=== PATIENT | male | born 1930 | race Caucasian/White ===

== ENCOUNTER 2016-08-13 08:08 | Observation (INO) | payer MEDICARE, BC ==
[2016-08-13] MEDS ORDERED: VERAPAMIL 2.5 MG/ML 4 ML VIAL ONE (09:13)
[2016-08-13] MEDS ORDERED: fentaNYL* 50 MCG/ML 2 ML VIAL (100 MCG VIAL) ONE (09:13)
[2016-08-13] MEDS ORDERED: Heparin(*) 1000 UNIT/ML 10 ML VIAL CATH LAB IV ONE (09:13)
[2016-08-13] MEDS ORDERED: Midazolam* 1 MG/ML 5 ML VIAL (5 MG) ONE (09:13)
[2016-08-13] MEDS ORDERED: Iohexol 350 (CONTRAST) 200 ML MDV IV ONE (09:14)
[2016-08-13] MEDS ORDERED: nitroGLYCERIN DRIP* 250 ML ONE (09:14)
[2016-08-13] MEDS ORDERED: Lidocaine 1% INJ* 10 MG/ML 30 ML SDV ONE (09:14)
[2016-08-13] MEDS ORDERED: Heparin 2 UNITS/ML IVPREMIX* 2,000 ML IV ONE (09:14)
[2016-08-13] MEDS ORDERED: Iodixanol* (CONTRAST) 320 MG/ML 100 ML SDV ONE ×3 (09:16→09:48)
[2016-08-13] MEDS ORDERED: Ticagrelor* 90 MG TAB PO ONE (09:51)
[2016-08-13] MEDS ORDERED: Acetaminophen TAB* 325 MG PO PRN (10:15)
[2016-08-13] MEDS ORDERED: NS 0.9% 1000 ML* 1,000 ML IV SCH (10:15)
[2016-08-13] MEDS ORDERED: LORazepam TAB(*) 0.5 MG PO PRN (10:17)
[2016-08-13] MEDS ORDERED: Saline NASAL SPRAY 0.65%* BTL BOTH NARES SCH (10:30)
[2016-08-13] MEDS ORDERED: Carbamide Peroxide 6.5% OTIC* 15 ML BTL BOTH EARS SCH (11:00)
[2016-08-13] MEDS ORDERED: Nitroglycerin TAB 0.4 MG* 0.4 MG TAB SL SCH (11:00)
[2016-08-13] MEDS ORDERED: Atorvastatin* 80 MG TAB PO SCH (17:00)
[2016-08-13] MEDS: Atenolol TAB* 25 MG PO SCH (21:49)
[2016-08-13] MEDS: Ticagrelor* 90 MG TAB PO SCH (21:49)
[2016-08-14 06:19] LABS: Calcium 8.9 mg/dL (8.6-10.3); EGFR African American 64.3 (>60); Potassium 3.7 mmol/L (3.5-5.0)
[2016-08-14] MEDS: Atenolol TAB* 25 MG PO SCH (08:28)
[2016-08-14] MEDS: Ticagrelor* 90 MG TAB PO SCH (08:28)
[2016-08-14] MEDS ORDERED: Finasteride TAB* 5 MG PO SCH (09:00)
[2016-08-14] MEDS ORDERED: NIFEdipine ER TAB* 60 MG PO SCH (09:00)
[2016-08-14] MEDS ORDERED: Tamsulosin CAP* 0.4 MG PO SCH (09:00)
[2016-08-14] MEDS ORDERED: Aspirin Low Dose CHEW TAB* 81 MG PO SCH (09:00)
[2016-08-14 13:05] VITALS: BP 121/74
--- NOTE | 2016-08-15 11:45 | DS ---
DISCHARGE SUMMARY: DATE OF ADMISSION: 08/13/16 DATE OF DISCHARGE: 08/14/16 PRIMARY CARE PHYSICIAN: Dr. Pinto. CHIEF DEPUTY COURT CLERK: Dr. Esparza. DISCHARGE DIAGNOSES: 1. Angina pectoris. 2. Previous coronary artery stenting. 3. Chronic kidney disease, stage 3. 4. Dyslipidemia. PROCEDURES: Cardiac cath, stent placement, circumflex 3.0 x 12 Xience drug- eluting stent. HISTORY: See Dr. Esparza's office record. In brief, he presented for outpatient catheterization for evaluation of new onset of angina, which has been limiting in spite of medical therapy. He had previous remote right coronary artery stenting. Comorbidities included CKD, stage 3 and dyslipidemia. He was volume loaded precath. DIAGNOSTIC STUDIES/LAB DATA: CBC on August 10, hemoglobin 13.5, normal platelet count. Chemistries on August 10, creatinine 1.46, at baseline. Normal electrolytes. Today, post procedure creatinine is 1.35 with stable electrolytes. Last LDL in October of 2015 was 64 on the Zocor. EKG post procedure shows sinus rhythm at 61 with borderline left axis deviation. HOSPITAL COURSE: He underwent outpatient catheterization via the right radial approach without complications, was found to have a high-grade circumflex stenosis, the RCA stent was widely patent. LV gram was not performed because of renal insufficiency. He has new onset of limiting angina. The circumflex stenosis was stented as above. Post procedure, there were no complications. His right radial artery is patent by exam, he has not had heart failure, angina , bleeding complications. He will continue Brilinta 90 b.i.d. for a day or two until he gets Plavix from the pharmacy, then he will continue aspirin and Plavix. He was switched from Zocor to high-dose Lipitor in part for its pleiotropic benefit even though his lipids were at target earlier last year. In addition, he obviously progressed in spite of Zocor 20. He has been discharged to outpatient followup, has a scheduled followup with Dr. Esparza. CC: Dr. Pinto; Dr. Esparza* [id number]/[facility] #: [id number] MTDD
--- NOTE | 2016-08-16 10:54 | CATH ---
STENT REPORT: DATE OF PROCEDURE: 08/13/16 PRIMARY: Dr. Pinto. TRANSPORT ENGINEER: Dr. Ken Esparza. PROCEDURES: Right radial artery access, bilateral selective coronary cineangiography, left heart catheterization. No left ventriculogram. STENT PLACEMENT: Circumflex, 3.0 x 12 Xience Alpine drug-eluting stent deployed at 14 atmospheres for 30 seconds after predilation with a 2.5 mm balloon. INDICATIONS: An 85-year-old male with remote RCA stenting 15 years ago in the setting of an infarct, now with 2 weeks of limiting angina, on beta-oz and calcium-oz. COMORBIDITIES: Include CKD stage 3 with a creatinine of 1.4. Hence, LV gram was not performed. PROCEDURE ACCESS: Right radial artery sheath 6F Slender. MEDICATION: 1. Subcu lidocaine. 2. IV Versed. 3. IV fentanyl. 4. Heparin 3000 units. 5. Verapamil 3 mg. 6. Nitroglycerin 300 mcg IA. 7. Heparin 3000 units IV. 8. Brilinta 180 mg p.o. DIAGNOSTIC CATHETERS: TIG 5F 4, 6-FR 4, 6-FL 3.5. GUIDE: VL 3.5 6-Slovak. WIRE: 0.014 BMW. HEMODYNAMICS: Initial BP 135/66, LV 93/6-13, no aortic valve gradient on pullback. ANGIOGRAPHY: Imaging of the right subclavian shows it to be very tortuous. Left main: The left main is normal in size, has minimal distal taper, it is calcified, has no significant stenosis. LAD: The LAD is moderate, extends past the apex, it is heavily calcified, the LAD supplies a moderate first diagonal branch, after which the LAD has a 30% to 40% stenosis, mid LAD has a 30% stenosis. Circumflex: The circumflex is moderate, not dominant, with a proximal 80% to 90 % stenosis, after which there is a [id number] first marginal, a larger second marginal, the circumflex ends with a moderate posterolateral. RCA: The RCA is moderate, dominant, previously placed proximal stent is patent , at the crux there is a 40% to 50% stenosis before the origin of the RPDA. The PDA is [id number]. After circumflex stent placement, there is no residual stenosis at the lesion site, there is a 40% stenosis beyond the stent, unchanged from pre-stenting. Flow is CADEN-3. CONCLUSION: 1. 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 2. Normal left-sided hemodynamics. 3. LV gram not performed due to renal insufficiency. 4. Successful right radial artery access. CC: Dr. Pinto; Dr. Ken Esparza* [id number]/[facility] #: [id number] [facility]
== END 2016-08-14 14:30 | disposition home or self-care (01) ==
LOC: CHICATH 08:08 → INTOOBSV 10:33 → ICU 10:33
PROVIDERS: ADMIT Internal Medicine Cardiovascular Disease; ATTEND Internal Medicine Cardiovascular Disease
DX: I25.119 Atherosclerotic heart disease of native coronary artery with unspecified angina pectoris (principal); I10 Essential (primary) hypertension; I25.2 Old myocardial infarction; R94.31 Abnormal electrocardiogram [ECG] [EKG]
CPT/HCPCS: 36415; 80048; 93005; 93458; 94760; A9270-GY; C1725; C1769; C1876; C1887; C9600-LC; G0378; J1644; J2250; J3010

== ENCOUNTER 2018-03-17 09:39 | Day surgery (SDC) | payer MEDICARE, BC ==
[~2018-03-17 09:39] MED LIST: Acetaminophen TAB* 325 MG PO PRN; Buffered Lidocaine 0.9% SYRIN* 5 ML/SYR SYRINGE INTRADERM ONE
[2018-03-17] MEDS ORDERED: Lidocaine 2% PF * 5 ML VIAL ONE (10:55)
[2018-03-17] MEDS ORDERED: Propofol* 10 MG/ML 20 ML BTL IV PUSH ONE (10:55)
[2018-03-17] MEDS ORDERED: fentaNYL* 50 MCG/ML 2 ML VIAL (100 MCG VIAL) ONE (10:55)
[2018-03-17 11:45] VITALS: BP 120/60
[2018-03-17] MEDS ORDERED: Tropicamide 1% OPTH.SOL* BTL ONE (13:21)
[2018-03-17] MEDS ORDERED: Ketorolac 0.5% OPHTH (NF) 0.5 % 5 ML BTL ONE (13:21)
[2018-03-17] MEDS ORDERED: Phenylephrine 2.5% OPTH.SOL* 2 ML BTL ONE (13:21)
[2018-03-17] MEDS ORDERED: Phenylephr/Ketorolac 1%/0.3% OPH DROP BTL ONE (13:21)
[2018-03-17] MEDS ORDERED: Cyclopentolate 1% OPTH.SOL* 2 ML BTL ONE (13:21)
[2018-03-17] MEDS ORDERED: Neomycin/Polymy/Dex OPHTH.OIN* 3.5 GM ONE (13:21)
[2018-03-17] MEDS ORDERED: Lidocaine 1%* 5 ML VIAL ONE (13:21)
[2018-03-17] MEDS ORDERED: Tetracaine 0.5% OPTH.SOL 4 ML* 1 DROP BTL ONE (13:21)
--- NOTE | 2018-03-17 22:02 | OP ---
DATE OF OPERATION: 03/17/18 [facility] DATE OF : [birth year] SURGEON: Dr. Wilfredo Ball. SEO INTERN: None. ANESTHESIA: Topical with intravenous sedation. PRE-OP DIAGNOSIS: Cataract, right eye. POST-OP DIAGNOSIS: Cataract, right eye. OPERATIVE PROCEDURE: Phacoemulsification and cataract extraction with posterior chamber intraocular lens implant, right eye. COMPLICATIONS: None. BLOOD LOSS: None. DESCRIPTION OF PROCEDURE: The patient was brought to the operating room and received a small amount of intravenous sedation. A drop of Tetracaine was placed in his right eye. He was prepped and draped in the usual sterile fashion for ophthalmic surgery and attention was directed to the right eye where a speculum was placed. A paracentesis was created at the 11 o'clock position and 0.1 cc of 1 percent preservative-free Lidocaine was injected into the anterior chamber followed by DisCoVisc. The eye was digitally stabilized while a 2.75 mm keratome was used to create a triplanar clear corneal incision at the 9 o'clock position. A continuous curvilinear capsulorrhexis was created with a cystotome and Utrata forceps. BSS on a cannula was used to hydrodissect the lens from the capsule. Phacoemulsification was performed in a divide-and- conquer technique to create four fragments which were removed. Residual cortical material was removed with irrigation and aspiration. DisCoVisc was used to inflate the capsular bag and an AU00T0 18.5 diopter lens was folded and inserted into the capsular bag. DisCoVisc was removed using irrigation and aspiration. BSS on a cannula was used to hydrate the corneal stroma and seal the wound. At the end of the case the pupil was round and the lens was centered. The eye was of normal pressure and the wound was water tight. The speculum was removed and topical Maxitrol ointment was placed on the surface of the eye. The eye was closed, patched and shielded and the patient was sent to the recovery room in stable condition with post operative instructions and follow-up appointment given. [id number]/[facility] #: [id number] ANGEL
== END 2018-03-17 11:50 | disposition home or self-care (01) ==
LOC: OREAST 09:39
PROVIDERS: ATTEND Ophthalmology
DX: H25.031 Anterior subcapsular polar age-related cataract, right eye (principal); I25.10 Atherosclerotic heart disease of native coronary artery without angina pectoris; I25.2 Old myocardial infarction; Z95.5 Presence of coronary angioplasty implant and graft; M19.90 Unspecified osteoarthritis, unspecified site; E78.00 Pure hypercholesterolemia, unspecified
CPT/HCPCS: A9270-GY; C9447; J2704; J3010; V2632

== ENCOUNTER 2018-03-24 09:47 | Day surgery (SDC) | payer MEDICARE, BC ==
[~2018-03-24 09:47] MED LIST changes: -Acetaminophen TAB* 325 MG PO PRN
[2018-03-24] MEDS ORDERED: fentaNYL* 50 MCG/ML 2 ML VIAL (100 MCG VIAL) ONE (12:00)
[2018-03-24] MEDS ORDERED: Midazolam* 1 MG/ML 2 ML VIAL (2 MG) ONE (12:00)
[2018-03-24] MEDS ORDERED: fentaNYL* 50 MCG/ML 5 ML VIAL (250 MCG VIAL) ONE (12:00)
[2018-03-24] MEDS ORDERED: Naloxone* 0.4 MG/ML 1 ML VIAL IV PRN (12:23)
[2018-03-24 13:37] VITALS: BP 123/54
[2018-03-24] MEDS ORDERED: Tetracaine 0.5% OPTH.SOL 4 ML* 1 DROP BTL ONE (15:11)
[2018-03-24] MEDS ORDERED: Phenylephrine 2.5% OPTH.SOL* 2 ML BTL ONE (15:11)
[2018-03-24] MEDS ORDERED: Tropicamide 1% OPTH.SOL* BTL ONE (15:11)
[2018-03-24] MEDS ORDERED: Ketorolac 0.5% OPHTH (NF) 0.5 % 5 ML BTL ONE (15:11)
[2018-03-24] MEDS ORDERED: Cyclopentolate 1% OPTH.SOL* 2 ML BTL ONE (15:11)
[2018-03-24] MEDS ORDERED: Neomycin/Polymy/Dex OPHTH.OIN* 3.5 GM ONE (15:11)
[2018-03-24] MEDS ORDERED: Lidocaine 1%* 5 ML VIAL ONE (15:11)
[2018-03-24] MEDS ORDERED: Phenylephr/Ketorolac 1%/0.3% OPH DROP BTL ONE (15:21)
--- NOTE | 2018-03-24 22:15 | OP ---
OPERATIVE REPORT: DATE OF OPERATION: 03/24/18 - [facility] DATE OF : [birth year] SURGEON: Dr. Wilfredo Ball. SPECIAL EDUCATION KINDERGARTEN TEACHER: None. ANESTHESIA: Topical with intravenous sedation. PRE-OP DIAGNOSIS: Cataract, left eye. POST-OP DIAGNOSIS: Cataract, left eye. OPERATIVE PROCEDURE: Phacoemulsification and cataract extraction with posterior chamber intraocular lens implant, left eye. COMPLICATIONS: None. BLOOD LOSS: None. OPERATIVE FINDINGS: The patient was brought to the operating room and received a small amount of intravenous sedation. A drop of Tetracaine was placed in to his left eye. He was prepped and draped in the usual sterile fashion for ophthalmic surgery and attention was directed to the left eye where a speculum was placed. A paracentesis was created at the 5 o'clock position and 0.1 cc of 1 percent preservative-free Lidocaine was injected into the anterior chamber followed by DisCoVisc. The eye was digitally stabilized while a 2.75 mm keratome was used to create a triplanar clear corneal incision at the 3 o'clock position. A continuous curvilinear capsulorrhexis was created with a cystotome and Utrata forceps. BSS on a cannula was used to hydrodissect the lens from the capsule. Phacoemulsification was performed in a ntlkzq-jbs-vdyyrmd technique to create four fragments which were removed. Residual cortical material was removed with irrigation and aspiration. DisCoVisc was used to inflate the capsular bag and an AU00T0 18.5 diopter lens was folded and inserted into the capsular bag. DisCoVisc was removed using irrigation and aspiration. BSS on a cannula was used to hydrate the corneal stroma and seal the wound. At the end of the case the pupil was round and the lens was centered. The eye was of normal pressure and the wound was water tight. The speculum was removed and topical Maxitrol ointment was placed on the surface of the eye. The eye was closed, patched and shielded and the patient was sent to the recovery room in stable condition with post operative instructions and follow-up appointment given. [id number]/[facility] #: [id number]
== END 2018-03-24 12:51 | disposition home or self-care (01) ==
LOC: OREAST 09:47
PROVIDERS: ATTEND Ophthalmology
DX: H25.12 Age-related nuclear cataract, left eye (principal); I25.10 Atherosclerotic heart disease of native coronary artery without angina pectoris; Z95.5 Presence of coronary angioplasty implant and graft; E78.5 Hyperlipidemia, unspecified; N18.9 Chronic kidney disease, unspecified
CPT/HCPCS: A9270-GY; C9447; J2250; J3010; V2632

== ENCOUNTER 2018-04-22 17:50 | Emergency (ER) | payer MEDICARE, BC ==
--- OUTSIDE RECORDS SUMMARY | 2018-04-22 17:57 | XMS REPORT ---
:1930 External Reference #:[id number] Author Organization Wilfredo Ball M.D., [facility] Address [address] [place] [address] Phone [phone] Care Team Providers Name Role Phone Millie MO, Bill Care Team Information Counterintelligence Agent Unavailable Millie MO, Bill Primary Care Physician Unavailable Payers Type Date Identification Numbers Payment Provider Subscriber Medicare Primary Policy Number: [id number] Medicare [place] [employer] PayID: [id number] [address] [place] [address] Health Maintenance Policy Number: [id number] [place] [employer] [facility] (O) PayID: [id number] [address] [place] [address] Problems Description No Information Family History Date Family Member(s) Problem(s) Comments General Noncontributory Father Age-Related Macular Degeneration Father Heart Disease Father Cataract Mother Blindness Mother Eye Muscle Disorder Mother Cancer Mother Age-Related Macular Degeneration Social History Type Date Description Comments ETOH Use Occasionally consumes alcohol Smoking Patient has never smoked Allergies, Adverse Reactions, Alerts Date Description Reaction Status Severity Comments 11/23/2013 NKDA active Medications Medication Date Status Form Strength Qnty SIG Indications Ordering Provider Moxifloxacin 03/18/ Active Solution 0.5% 9ml 1 drop Wilfredo HCL 2018 drops Ball, right M.D. eye four times a day Ketorolac 03/18/ Active Solution 0.5% 10ml 1 drops Wilfredo Tromethamine 2018 right Ball, eye M.D. twice a day Pred Forte 03/18/ Active Suspension 1% 10ml 1 drops Peter 2018 right Ball, eye four M.D. times a day Tobramycin-Dexa 02/26/ Active Suspension 0.3-0.1% 5ml 1 drop Santi methasone 2018 three Allen, OD times a day left eye x 1 week Nifedipine ER 00/00/ Active Tablets ER 60mg Skezas MD, 0000 24HR Bill Atenolol 00/ Active Tablets 25mg Unknown 0000 Lipitor 00/ Active Tablets 80mg Unknown 0000 Flomax 00/ Active Capsules 0.4mg Unknown 0000 Finasteride 00/ Active Tablets 5mg Unknown 0000 Aspirin 81 Low 00/ Active Chewtabs 81mg Unknown Dose 0000 Icaps Areds 2 00/ Active Capsules 2 Unknown 0000 Tylenol 8 Hour / Active Tablets ER 650mg 1 by Unknown 0000 mouth three times a day as needed for pain Lorazepam / Active Concentrate 2mg/ml Unknown 0000 Vital Signs Date Vital Result Comment 03/25/2018 Intraocular Pressure Right Eye 15 mmHg Intraocular Pressure Left Eye 16 mmHg 03/18/2018 Intraocular Pressure Right Eye 17 mmHg 03/06/2018 Intraocular Pressure Left Eye 15 mmHg 02/19/2018 Intraocular Pressure Right Eye 15 mmHg Intraocular Pressure Left Eye 14 mmHg 08/20/2017 Intraocular Pressure Right Eye 14 mmHg Intraocular Pressure Left Eye 14 mmHg 08/14/2017 Intraocular Pressure Right Eye 14 mmHg Intraocular Pressure Left Eye 14 mmHg Results Description No Information Procedures Date CPT Code Description Status 02/19/2018 26247 Ophthalmic Biometry By Partial Coherence Interferometry Completed W/Intra 02/19/2018 30816 Eye Exam Est Intermediate Completed 08/20/2017 06489 Ophthalmic Biometry By Partial Coherence Interferometry Completed W/Intra 08/20/2017 82859 Oct Retina Completed 08/20/2017 66053 Eye Exam Est Intermediate Completed 08/14/2017 27513 Fundus Photography W/Interpretation & Report Completed 08/14/2017 29645 Ophthalmoscopy Initial Completed 08/14/2017 67748 Eye Exam New Comprehensive Completed 01/09/2011 24443 Fundus Photography W/Interpretation & Report Completed 01/09/2011 45916 Ophthalmoscopy Subsequent Completed 01/09/2011 54369 Eye Exam Est Comprehensive Completed 12/27/2009 03457 Eye Exam Est Comprehensive Completed 12/27/2009 95740 Ophthalmoscopy Subsequent Completed 12/27/2009 71018 Fundus Photography W/Interpretation & Report Completed 12/20/2008 34750 Fundus Photography W/Interpretation & Report Completed 12/20/2008 28349 Ophthalmoscopy Subsequent Completed 12/20/2008 68726 Eye Exam Est Comprehensive Completed 01/06/2008 90310 Fundus Photography W/Interpretation & Report Completed 01/06/2008 02015 Ophthalmoscopy Subsequent Completed 01/06/2008 90612 Eye Exam Est Comprehensive Completed 11/17/2006 31297 Ophthalmoscopy Initial Completed 11/17/2006 69675 Refraction Completed 11/17/2006 51979 Eye Exam New Comprehensive Completed Encounters Type Date Location Provider CPT E/M Office Visit 03/06/2018 11:15a [place] [address] Office Visit 02/26/2018 1:30p [place] [address]
--- OUTSIDE RECORDS SUMMARY | 2018-04-22 17:57 | XMS REPORT | Continuity of Care Document ---
:1930 External Reference #:[id number] Author Name Santi Allen, OD Address [address] [place] [address] Care Team Providers Name Role Phone Bill Pinto MD Care Team Information Forestry Farm Laborer Unavailable Millie MO, Bill Primary Care Physician Unavailable Payers Type Date Identification Numbers Payment Provider Subscriber Policy Number: [id number] Medicare [facility] Bird Mahmood PayID: [id number] [address] [place] [address] Policy Number: [id number] [place] [employer] Bird Mahmood PayID: [id number] [address] [place] [address] Advance Directives Description No Information Available Problems Description No Information Family History Date Family Member(s) Problem(s) Comments General Noncontributory Father Age-Related Macular Degeneration Father Heart Disease Father Cataract Mother Blindness Mother Eye Muscle Disorder Mother Cancer Mother Age-Related Macular Degeneration Social History Type Date Description Comments Sex Unknown ETOH Use Occasionally consumes alcohol Tobacco Use Start: Unknown Patient has never smoked Smoking Status Reviewed: 04/06/18 Patient has never smoked Allergies, Adverse Reactions, Alerts Description No Known Drug Allergies Medications Medication Date Status Form Strength Qnty SIG Indications Ordering Provider Ketorolac 03/18/ Active Solution 0.5% 10ml 1 drops Wilfredo Tromethamine 2017 right Ball, eye M.D. twice a day Pred Forte 03/18/ Active Suspension 1% 10ml 1 drops Wilfredo 2018 right Ball, eye four M.D. times a day Nifedipine ER / Active Tablets ER 60mg Millie MO, 0000 24HR Bill Atenolol / Active Tablets 25mg Unknown 0000 Lipitor / Active Tablets 80mg Unknown 0000 Flomax 00/ Active Capsules 0.4mg Unknown 0000 Finasteride / Active Tablets 5mg Unknown 0000 Aspirin 81 Low / Active Chewtabs 81mg Unknown Dose 0000 Icaps Areds 2 00/00/ Active Capsules 2 Unknown 0000 Tylenol 8 Hour 00/00/ Active Tablets ER 650mg 1 by Unknown 0000 mouth three times a day as needed for pain Lorazepam / Active Concentrate 2mg/ml Unknown 0000 Moxifloxacin 03/18/ Hx Solution 0.5% 9ml 1 drop Peter HCL 2018 - drops Ball, 04/06/ right M.D. 2018 eye four times a day Tobramycin-Dexa 02/26/ Hx Suspension 0.3-0.1% 5ml 1 drop Santi methasone 2018 - three Allen, OD 04/06/ times a 2018 day left eye x 1 week Immunizations Description No Information Available Vital Signs Date Vital Result Comment 04/06/2018 3:11pm Intraocular Pressure Right Eye 16 mmHg Intraocular Pressure Left Eye 16 mmHg 03/25/2018 9:44am Intraocular Pressure Right Eye 15 mmHg Intraocular Pressure Left Eye 16 mmHg 03/18/2018 9:52am Intraocular Pressure Right Eye 17 mmHg 03/06/2018 12:00pm Intraocular Pressure Left Eye 15 mmHg 02/19/2018 8:55am Intraocular Pressure Right Eye 15 mmHg Intraocular Pressure Left Eye 14 mmHg 08/20/2017 10:38am Intraocular Pressure Right Eye 14 mmHg Intraocular Pressure Left Eye 14 mmHg 08/14/2017 10:30am Intraocular Pressure Right Eye 14 mmHg Intraocular Pressure Left Eye 14 mmHg Results Description No Information Available Procedures Date Code Description Status 03/24/2018 85373 Extracapsular Cataract Extraction W/Intraocular Lens Completed 03/17/2018 93268 Extracapsular Cataract Extraction W/Intraocular Lens Completed 02/19/2018 98685 Ophthalmic Biometry By Partial Coherence Interferometry Completed W/Intra 02/19/2018 03340 Eye Exam Est Intermediate Completed 08/20/2017 25148 Ophthalmic Biometry By Partial Coherence Interferometry Completed W/Intra 08/20/2017 98761 Oct Retina Completed 08/20/2017 18236 Eye Exam Est Intermediate Completed 08/14/2017 29726 Fundus Photography W/Interpretation & Report Completed 08/14/2017 09021 Ophthalmoscopy Initial Completed 08/14/2017 91409 Eye Exam New Comprehensive Completed 01/09/2011 47546 Eye Exam Est Comprehensive Completed 01/09/2011 43038 Ophthalmoscopy Subsequent Completed 01/09/2011 88815 Fundus Photography W/Interpretation & Report Completed 12/27/2009 90311 Fundus Photography W/Interpretation & Report Completed 12/27/2009 74286 Ophthalmoscopy Subsequent Completed 12/27/2009 41709 Eye Exam Est Comprehensive Completed 12/20/2008 56989 Fundus Photography W/Interpretation & Report Completed 12/20/2008 58493 Ophthalmoscopy Subsequent Completed 12/20/2008 10628 Eye Exam Est Comprehensive Completed 01/06/2008 71628 Fundus Photography W/Interpretation & Report Completed 01/06/2008 25601 Ophthalmoscopy Subsequent Completed 01/06/2008 98457 Eye Exam Est Comprehensive Completed 11/17/2006 51628 Ophthalmoscopy Initial Completed 11/17/2006 23751 Refraction Completed 11/17/2006 04571 Eye Exam New Comprehensive Completed Encounters Type Date Location Provider Dx Diagnosis Office Visit 03/06/2018 Main Office Santi Allen, OD H10.022 Other mucopurulent 11:15a conjunctivitis, left eye H25.813 Combined forms of age-related cataract, 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
--- NOTE | 2018-04-22 18:10 | UC ---
Ear Complaint HPI - HPI Summary HPI Summary: 87 yo male presents with FB in right ear. 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 He tried to remove it, but could not. He has no pain. - History of Current Complaint Stated Complaint: ear complaint Time Seen by Provider: 04/22/18 18:10 Hx Obtained From: Patient Onset/Duration: Sudden Onset Severity Currently: None - Allergies/Home Medications Allergies/Adverse Reactions: Allergies Allergy/AdvReac Type Severity Reaction Status Date / Time No Known Allergies Allergy Verified 04/22/18 18:13 PMH/Surg Hx/FS Hx/Imm Hx - Additional Past Medical History Additional PMH: BPH Endocrine History: Dyslipidemia Cardiovascular History: Cardiac Disease, Hypertension Psychological History: Anxiety - Surgical History Surgical History: Yes Surgery Procedure, Year, and Place: 1974... 1979, 1985, 2002 RT HIP REPLACEMENT [place] [address], THEN 2 IN [facility]. 2000 & 2016 CARDIAC STENTS [place] [facility]. 1999 [place]. Hernia repair [facility]. COLONOSCOPY [facility] - Family History Known Family History: Positive: Cardiac Disease, Hypertension - Social History Occupation: Retired Lives: With Family Alcohol Use: Daily Alcohol Amount: SMALL GLASS OF RED WINE DAILY Substance Use Type: None Smoking Status (MU): Never Smoked Tobacco Have You Smoked in the Last Year: No - Immunization History Most Recent Influenza Vaccination: last fall Most Recent Tetanus Shot: unknown Most Recent Pneumonia Vaccination: unknown Review of Systems Constitutional: Negative Skin: Negative ENT: Other - FB right ear Respiratory: Negative Cardiovascular: Negative Neurovascular: Negative Neurological: Negative Psychological: Negative All Other Systems Reviewed And Are Negative: Yes Physical Exam - Summary Physical Exam Summary: GENERAL: NAD. WDWN. No pain distress. SKIN: No rashes, sores, lesions, or open wounds. HEENT: Head: AT/NC Ears: Hearing grossly normal. RIGHT ear: canal with black/nieves soft FB consistent with ear piece from hearing aid. LEFT ear: WNL. TM intact. NECK: Supple. CHEST: No accessory muscle use. Breathing comfortably and in no distress. CV: Pulses intact. NEURO: Alert. PSYCH: Age appropriate behavior. Triage Information Reviewed: Yes Vital Signs: Vital Signs: Temp Pulse Resp BP Pulse Ox 97.7 F 63 15 133/67 100 04/22/18 18:09 04/22/18 18:09 04/22/18 18:09 04/22/18 18:09 04/22/18 18:09 Vital Signs Reviewed: Yes Ear Complaint Course/Dx - Course Course Of Treatment: Smooth forceps were used to remove the soft ear piece without difficulty. Pt tolerated well and without pain. Ear canal and TM WNL s/ p removal. - Differential Dx/Diagnosis Provider Diagnoses: Right ear foreign body Discharge - Sign-Out/Discharge Documenting (check all that apply): Patient Departure All imaging exams completed and their final reports reviewed: No Studies - Discharge Plan Condition: Stable Disposition: HOME Patient Education Materials: Ear Foreign Body (ED) Referrals: Bill Pinto MD [Primary Care Provider] - Additional Instructions: If you develop a fever, shortness of breath, chest pain, new or worsening symptoms - please call your PCP or go to the ED. - Billing Disposition and Condition Condition: STABLE Disposition: Home - Attestation Statements Provider Attestation: Per institutional requirements, I have reviewed the chart, however, I was not consulted specifically or made aware of this patient by the midlevel provider. I did not personally evaluate, interact with , or disposition this patient.
[2018-04-22 18:13] VITALS: BP 133/67
== END 2018-04-22 18:55 | disposition home or self-care (01) ==
LOC: UCEAST 17:50
DX: T16.1XXA Foreign body in right ear, initial encounter (principal); X58.XXXA Exposure to other specified factors, initial encounter; Y93.9 Activity, unspecified; Y92.9 Unspecified place or not applicable
CPT/HCPCS: 99211; G0463